=== PATIENT | male | born 1990 | race Hispanic/Latino ===

== ENCOUNTER 2017-11-18 08:39 | Emergency (ER) | payer BC ==
[2017-11-18] MEDS ORDERED: NA CHLORIDE 0.9% 1,000 ML ONE (09:40)
[2017-11-18] MEDS ORDERED: FAMOTIDINE 20 MG/2 ML VIAL IV ONE (09:40)
--- NOTE | 2017-11-18 09:44 | RAD REPORT ---
EXAM DESCRIPTION: RAD - Chest Single View - 11/18/2017 9:23 am CLINICAL HISTORY: Chest pain. COMPARISON: None. FINDINGS: Portable technique limits examination quality. The lungs are grossly clear. The heart is normal in size. No displaced fractures. IMPRESSION: No acute intrathoracic process suspected.
[2017-11-18 09:45] LABS: Absolute Monocytes 0.9 K/uL (0.1-1.3); Absolute Neutrophil 5.3 K/uL (1.8-8.0); Basophils % 0.2 % (0-1.3); Eosinophils % 0.9 % (0-4.4); Hematocrit 42.2 % (39.6-49.0); MCH 29.4 pg (27.0-35.0); MCV 87.2 fL (80-100); Monocytes % 10.9 % (3.3-12.3); RBC Red Blood Cell Count 4.84 M/uL (4.33-5.43)
[2017-11-18 09:50] LABS: Protime INR 1.02
[2017-11-18 09:56] LABS: Bicarbonate 28 mEq/L (21-31); Glucose Level 99 mg/dL (65-120); Lipase 28 U/L (22-51); Sodium Level 140 mEq/L (135-145)
[2017-11-18 10:03] LABS: ALT/SGPT 61 IU/L (10-60); AST/SGOT 51 IU/L (10-42); Albumin 4.4 g/dL (3.2-5.5); Alkaline Phosphatase 100 IU/L (42-121); BUN Blood Urea Nitrogen 18 mg/dL (6-20); Bilirubin Direct 0.1 mg/dL (0-0.2); Bilirubin Total 0.6 mg/dL (0.3-1.2); Glomerular Filtration Rate > 90 mL/min (=/>90); Magnesium 2.3 mg/dL (1.8-2.5); Protein, Total 7.2 g/dL (6.0-8.3)
--- NOTE | 2017-11-18 13:19 | EDPHYS ---
Physician Documentation [facility] Name: Feliciano Schwartz Age: 27 yrs Sex: Male : 1990 Arrival Date: 11/18/2017 Time: 08:42 Bed 8 Private MD: ED Physician Isaac Paris HPI: 11/18 21:20 This 27 yrs old Male presents to ER via EMS with complaints of Chest Pain. kdr 21:20 The patient or guardian reports chest pain that is located primarily in the substernal kdr area, anterior chest wall, chest diffusely. The pain does not radiate. Associated signs and symptoms: Pertinent positives: abdominal pain, nausea, palpitations, vomiting. The chest pain is described as aching, burning, dull, a heaviness. Duration: The patient or guardian reports a single episode, that is now resolved. Modifying factors: The symptoms are alleviated by the symptoms are aggravated by nothing. Severity of pain: At its worst the pain was moderate severe just prior to arrival, in the emergency department the pain has improved markedly. The patient has not experienced similar symptoms in the past. The patient has not recently seen a physician. Historical: - Allergies: 08:47 No Known Allergies; ae1 - Home Meds: 08:47 None [Active]; ae1 - PMHx: 08:47 None; ae1 - PSHx: 08:47 None; ae1 - Immunization history:: Last tetanus immunization: > 10 years ago Flu vaccine is not up to date. - Social history:: Smoking status: Patient/guardian denies using tobacco, Patient/guardian denies using alcohol, street drugs, IV drugs, caffeine, tobacco products. ROS: 21:20 Constitutional: Negative for fever, chills, and weight loss, Eyes: Negative for injury, kdr pain, redness, and discharge, Neck: Negative for injury, pain, and swelling, Respiratory: Negative for shortness of breath, cough, wheezing, and pleuritic chest pain, Back: Negative for injury and pain, : Negative for injury, bleeding, discharge, and swelling, MS/Extremity: Negative for injury and deformity, Skin: Negative for injury, rash, and discoloration, Neuro: Negative for headache, weakness, numbness, tingling, and seizure activity. Psych: Negative for depression, anxiety, suicide ideation, homicidal ideation, and hallucinations, Allergy/Immunology: Negative for hives, rash, and allergies, Endocrine: Negative for neck swelling, polydipsia, polyuria, polyphagia, and marked weight changes, Hematologic/Lymphatic: Negative for swollen nodes, abnormal bleeding, and unusual bruising. 21:20 Cardiovascular: Positive for chest pain, palpitations, Negative for edema, orthopnea. Exam: 21:20 Constitutional: This is a well developed, well nourished patient who is awake, alert, kdr and in no acute distress. Head/Face: Normocephalic, atraumatic. Eyes: Pupils equal round and reactive to light, extra-ocular motions intact. Lids and lashes normal. Conjunctiva and sclera are non-icteric and not injected. Cornea within normal limits. Periorbital areas with no swelling, redness, or edema. Neck: Trachea midline, no thyromegaly or masses palpated, and no cervical lymphadenopathy. Supple, full range of motion without nuchal rigidity, or vertebral point tenderness. No Meningismus. Chest/axilla: Normal chest wall appearance and motion. Nontender with no deformity. No lesions are appreciated. Cardiovascular: Regular rate and rhythm with a normal S1 and S2. No gallops, murmurs, or rubs. Normal PMI, no JVD. No pulse deficits. Respiratory: Lungs have equal breath sounds bilaterally, clear to auscultation and percussion. No rales, rhonchi or wheezes noted. No increased work of breathing, no retractions or nasal flaring. Abdomen/GI: Soft, non-tender, with normal bowel sounds. No distension or tympany. No guarding or rebound. No evidence of tenderness throughout. Back: No spinal tenderness. No costovertebral tenderness. Full range of motion. Skin: Warm, dry with normal turgor. Normal color with no rashes, no lesions, and no evidence of cellulitis. MS/ Extremity: Pulses equal, no cyanosis. Neurovascular intact. Full, normal range of motion. Neuro: Awake and alert, GCS 15, oriented to person, place, time, and situation. Cranial nerves II-XII grossly intact. Motor strength 5/5 in all extremities. Sensory grossly intact. Cerebellar exam normal. Normal gait. Psych: Awake, alert, with orientation to person, place and time. Behavior, mood, and affect are within normal limits. Vital Signs: 08:47 BP 119 / 67; Pulse 81; Resp 16; Temp 98.1(O); Pulse Ox 100% on R/A; Weight 61.23 kg (R);ae1 09:30 BP 111 / 75; Pulse 73; Resp 17; Pulse Ox 96% on R/A; ae1 10:30 BP 120 / 84; Pulse 73; Resp 16; Pulse Ox 100% on R/A; ae1 11:55 BP 116 / 81; Pulse 68; Resp 18; Pulse Ox 100% on R/A; ae1 12:30 BP 122 / 86; Pulse 69; Resp 18; Pulse Ox 100% ; ag 13:36 BP 127 / 77; Pulse 88; Resp 19; Pulse Ox 100% on R/A; ag MDM: 13:18 Patient medically screened. kdr 21:20 Data reviewed: vital signs, nurses notes, lab test result(s), EKG, radiologic studies. kdr 11/18 09:10 Order name: Basic Metabolic Panel kdr 11/18 09:10 Order name: BNP kdr 11/18 09:10 Order name: CBC with Diff kdr 11/18 09:10 Order name: LFT's kdr 11/18 09:10 Order name: Magnesium kdr 11/18 09:10 Order name: PT-INR kdr 11/18 09:10 Order name: Ptt, Activated kdr 11/18 09:10 Order name: Troponin (emerg Dept Use Only) kdr 11/18 09:10 Order name: Lipase kdr 11/18 09:37 Order name: Urine Dipstick--Ancillary (enter results) ms 11/18 09:53 Order name: Protime (+INR); Complete Time: 10:19 EDMS 11/18 09:53 Order name: PTT, Activated Partial Thromb; Complete Time: 10:19 EDMS 11/18 09:53 Order name: CBC with Automated Diff; Complete Time: 10:19 EDMS 11/18 09:57 Order name: Basic Metabolic Panel; Complete Time: 10:19 EDMS 11/18 09:10 Order name: XRAY Chest (1 view) kdr 11/18 09:10 Order name: EKG; Complete Time: 09:11 kdr 11/18 09:10 Order name: Cardiac monitoring; Complete Time: 09:17 kdr 11/18 09:10 Order name: EKG - Nurse/Tech; Complete Time: 09:56 [facility] 11/18 09:10 Order name: IV Saline Lock; Complete Time: 09:17 [facility] 11/18 09:10 Order name: Labs collected and sent; Complete Time: 09:27 [facility] 11/18 09:44 Order name: RAD; Complete Time: 10:19 [facility] 11/18 09:57 Order name: Lipase; Complete Time: 10:19 [facility] 11/18 10:03 Order name: Liver (Hepatic) Function; Complete Time: 10:19 [facility] 11/18 10:03 Order name: Magnesium; Complete Time: 10:19 [facility] 11/18 10:34 Order name: BNP B-Type Natriuretic Peptide; Complete Time: 10:50 [facility] 11/18 10:54 Order name: Troponin (Emerg Dept Use Only); Complete Time: 12:19 [facility] 11/18 12:22 Order name: Troponin (emerg Dept Use Only) [facility] 11/18 13:07 Order name: Troponin (Emerg Dept Use Only); Complete Time: 13:15 [facility] 11/18 09:10 Order name: O2 Per Protocol; Complete Time: 09: [facility] 11/18 09:10 Order name: O2 Sat Monitoring; Complete Time: 09:17 [facility] 11/18 09:10 Order name: Urine Dipstick-Ancillary (obtain specimen); Complete Time: 09:31 kdr Administered Medications: 09:30 Drug: Pepcid 20 mg Route: IVP; Site: right antecubital; ae1 10:55 Follow up: Response: No adverse reaction ae1 09:30 Drug: NS 0.9% 1000 ml Route: IV; Rate: 1 bolus; Site: right antecubital; ae1 10:55 Follow up: IV Status: Completed infusion ae1 Disposition: 11/18/17 13:18 Discharged to Home. Impression: Other chest pain, Vomiting. - Condition is Stable. - Discharge Instructions: Nausea and Vomiting, [id number], Nonspecific Chest Pain, Ocer-oc-Fuso. - Prescriptions for promethazine 25 mg Oral Tablet - take 1 tablet by ORAL route every 6 hours As needed; 10 tablet. Pepcid 20 mg Oral Tablet - take 1 tablet by ORAL route once daily; 20 tablet. - Medication Reconciliation Form, Thank You Letter, Antibiotic Education, Prescription Opioid Use form. - Follow up: Private Physician; When: 2 - 3 days; Reason: If symptoms return, Further diagnostic work-up, Recheck today's complaints, Continuance of care, Re-evaluation by your physician. - Problem is new. - Symptoms are resolved. Signatures: Dispatcher [employer] EDIsaac Granger MD MD kdr Elliott, Andrea, RN RN ae1
--- NOTE | 2017-11-18 13:19 | ER ---
Nurse's Notes [facility] Name: Feliciano Schwartz Age: 27 yrs Sex: Male : 1990 Arrival Date: 11/18/2017 Time: 08:42 Bed 8 Private MD: Diagnosis: Other chest pain;Vomiting Presentation: 11/18 08:44 Presenting complaint: EMS states: EMS states patient woke up with "chest tightness", ae1 that woke him from sleep, patient states he felt "sweaty" and SOB. PAtient is a \\T\\ o x , rates pain at 2/10 currently. Transition of care: patient was not received from another setting of care. Onset of symptoms was November 18, 2017 at 07:30. Care prior to arrival: Medication(s) given: ASA, 325 mg, IV initiated. 20 GA, in the right antecubital area. 08:44 Method Of Arrival: EMS: [facility] ae1 08:44 Acuity: DAVID 3 ae1 Triage Assessment: 08:47 General: Appears in no apparent distress. comfortable, Behavior is cooperative, ae1 anxious. Pain: Complains of pain in mid-sternal area Pain does not radiate. Pain currently is 2 out of 10 on a pain scale. EENT: No signs and/or symptoms were reported regarding the EENT system. Neuro: Level of Consciousness is awake, alert, obeys commands, Oriented to person, place, time, situation. Cardiovascular: Heart tones S1 S2 present Patient's skin is warm and dry. Respiratory: Airway is patent Respiratory effort is even, unlabored, Respiratory pattern is regular, symmetrical, Breath sounds are clear bilaterally. GI: No signs and/or symptoms were reported involving the gastrointestinal system. : No signs and/or symptoms were reported regarding the genitourinary system. Derm: Skin is normal, Skin temperature is warm. Musculoskeletal: No signs and/or symptoms reported regarding the musculoskeletal system. Historical: - Allergies: 08:47 No Known Allergies; ae1 - Home Meds: 08:47 None [Active]; ae1 - PMHx: 08:47 None; ae1 - PSHx: 08:47 None; ae1 - Immunization history:: Last tetanus immunization: > 10 years ago Flu vaccine is not up to date. - Social history:: Smoking status: Patient/guardian denies using tobacco, Patient/guardian denies using alcohol, street drugs, IV drugs, caffeine, tobacco products. Screenin:50 Abuse screen: Denies threats or abuse. Nutritional screening: No deficits noted. ae1 Tuberculosis screening: No symptoms or risk factors identified. Fall Risk Fall in past 12 months (25 points). No secondary diagnosis (0 pts). IV access (20 points). Ambulatory Aid- None/Bed Rest/Nurse Assist (0 pts). Gait- Normal/Bed Rest/Wheelchair (0 pts) Mental Status- Oriented to own ability (0 pts). Assessment: 08:51 Pain: Pain began suddenly, 1 hour ago. ae1 10:55 Reassessment: Patient appears in no apparent distress at this time. Patient and/or ae1 family updated on plan of care and expected duration. Pain level reassessed. Patient is alert, oriented x 3, equal unlabored respirations, skin warm/dry/pink. Patient states feeling better. 11:56 Reassessment: Patient appears in no apparent distress at this time. Patient and/or ae1 family updated on plan of care and expected duration. Pain level reassessed. Patient is alert, oriented x 3, equal unlabored respirations, skin warm/dry/pink. Patient states feeling better. Vital Signs: 08:47 BP 119 / 67; Pulse 81; Resp 16; Temp 98.1(O); Pulse Ox 100% on R/A; Weight 61.23 kg (R);ae1 09:30 BP 111 / 75; Pulse 73; Resp 17; Pulse Ox 96% on R/A; ae1 10:30 BP 120 / 84; Pulse 73; Resp 16; Pulse Ox 100% on R/A; ae1 11:55 BP 116 / 81; Pulse 68; Resp 18; Pulse Ox 100% on R/A; ae1 12:30 BP 122 / 86; Pulse 69; Resp 18; Pulse Ox 100% ; ag 13:36 BP 127 / 77; Pulse 88; Resp 19; Pulse Ox 100% on R/A; ag ED Course: 08:42 Patient arrived in ED. ae1 08:43 Yehuda Gill RN is Primary Nurse. ae1 08:44 Isaac Paris MD is Attending Physician. kdr 08:47 Triage completed. ae1 08:49 Arm band placed on right wrist. ae1 08:50 Bed in low position. Call light in reach. Side rails up X 1. school bus monitor on. Pulse ae1 ox on. NIBP on. 08:50 Maintain EMS IV. Dressing intact. Site clean \\T\\ dry. Gauge \\T\\ site: 20 gauge right AC. ae 1 Patient maintains SpO2 saturation greater than 95% on room air. 09:21 X-ray completed. Portable x-ray completed in exam room. Patient tolerated procedure ml well. 11:58 EKG done, by office technician. reviewed by Isaac Paris MD. tc 12:36 Troponin (emerg Dept Use Only) Sent. ag 12:36 Urine Dipstick--Ancillary (enter results) Sent. ag 12:36 Lipase Sent. ag 12:36 Basic Metabolic Panel Sent. ag 12:37 BNP Sent. ag 12:37 CBC with Diff Sent. ag 12:37 Magnesium Sent. ag 12:37 PT-INR Sent. ag 12:37 Ptt, Activated Sent. ag 12:37 Troponin (emerg Dept Use Only) Sent. ag 12:37 LFT's Sent. ag 12:39 XRAY Chest (1 view) Sent. ag 13:48 No provider procedures requiring assistance completed. IV discontinued, intact, ae1 bleeding controlled, No redness/swelling at site. Pressure dressing applied. Administered Medications: 09:30 Drug: Pepcid 20 mg Route: IVP; Site: right antecubital; ae1 10:55 Follow up: Response: No adverse reaction ae1 09:30 Drug: NS 0.9% 1000 ml Route: IV; Rate: 1 bolus; Site: right antecubital; ae1 10:55 Follow up: IV Status: Completed infusion ae1 Outcome: 13:18 Discharge ordered by . kdr 13:48 Discharged to home ambulatory. ae1 13:48 Condition: stable 13:48 Discharge instructions given to patient, Instructed on discharge instructions, follow up and referral plans. medication usage, Demonstrated understanding of instructions, Prescriptions given X 2. 13:48 Patient left the ED. ae1 Signatures: Isaac Paris MD MD kdr Lopez, Melissa ml Callis, Tiffany, skiing instructor EKG Ttc Florencio, Amaris ag Yehuda Gill, RN RN ae1
[2017-11-18 14:10] LABS: Urine Blood NEGATIVE (NEG); Urine Glucose NEGATIVE (NEG); Urine Protein NEGATIVE (NEG); Urine Specific Gravity 1.015 (1.005-1.030); Urine pH 8.5 (5.0-7.0)
--- NOTE | 2017-11-18 16:49 | EKG ---
Test Date: 2017-11-18 Test Time: 09:46:45 Athletics Teacher: MARY MEASUREMENT RESULTS: Intervals: Rate: 71 [place]: 168 QRSD: 88 QT: 364 QTc: 395 [place]: P: 62 [place]: 168 QRS: 76 T: 45 INTERPRETIVE STATEMENTS: Normal sinus rhythm Normal ECG No previous ECG available for comparison Electronically Signed On 11-18-17 16:48:30 CDT by Cortes Blackman
== END 2017-11-18 13:48 | disposition home or self-care (01) ==
LOC: ER 08:39
DX: R07.9 Chest pain, unspecified
CPT/HCPCS: 36415; 71045; 80048; 80076; 81003; 83690; 83735; 83880; 84484; 85025; 85610; 85730; 93005; 96361; 96374; 99285; J7030